=== PATIENT | male | born 1965 | race Caucasian/White ===

== ENCOUNTER 2022-09-22 21:14 | Emergency (ER) | payer SELFPAY ==
[~2022-09-22] VITALS: Ht 177.8 cm; Wt 74.8 kg
[2022-09-22 21:26] VITALS: BP 157/97
[2022-09-22] MEDS ORDERED: LIDOCAINE/EPI 2% 1:200,00 (XYLOCAINE) 10 ML VIAL ONE (21:38)
[2022-09-22] MEDS ORDERED: metroNIDAZOLE 500 MG (FLAGYL) TAB PO ONE (21:45)
[2022-09-22] MEDS ORDERED: LIDOCAINE/EPI 2% 1:100,00 (XYLOCAINE) 20 ML VIAL INJ ONE (21:45)
[2022-09-22] MEDS ORDERED: LIDOCAINE 1% INJ 20 ML VIAL INJ ONE (21:45)
[2022-09-22] MEDS ORDERED: cefTRIAXone 1,000 MG VIAL IM ONE (21:45)
[2022-09-22] MEDS ORDERED: CLIN-144 PO (22:02)
--- NOTE | 2022-09-22 22:02 | ED EENT ---
History of Present Illness General Chief Complaint: Dental Problems/Pain Stated Complaint: ABSCESSED TOOTH,SWELLING,PUS POCKET Nursing Triage Note: PT ARRIVED POV WITH COMPLAINTS OF DENTAL PAIN ON THE LEFT SIDE. PT STATED THAT THE PAIN STARTED ON SUNDAY. PT HAS BEEN TAKING AMOXICILLIN THAT FRIEND GAVE HIM. Source: patient Exam Limitations: no limitations History of Present Illness Date Seen by Provider: Sep 22, 2022 Time Seen by Provider: 21:58 Initial Comments To ER with reports of dental pain left upper for a few days. Has been taking a friend's amoxicillin, no real improvement. Does not have a dentist. Timing/Duration: abrupt Severity: moderate Location: dental Prearrival Treatment: prescription meds Associated Symptoms: facial pain/swelling Allergies and Home Medications Allergies Coded Allergies: No Known Drug Allergies (Unverified , 09/22/22) Patient Home Medication List Home Medication List Reviewed: Yes Review of Systems Review of Systems Constitutional: see HPI Eyes: No Symptoms Reported Ears: No Symptoms Reported Nose: no symptoms reported Mouth: see HPI, pain, swelling Throat: no symptoms reported Respiratory: no symptoms reported Cardiovascular: no symptoms reported Musculoskeletal: no symptoms reported Skin: no symptoms reported Past Yeimpsy-Yjzygb-Foxwzh Hx Patient Social History Tobacco Use?: Yes Tobacco type used: Cigarettes Substance use?: Yes Substance type: Marijuana Alcohol Use?: Yes Alcohol Frequency: Once in a while Immunizations Up To Date Influenza Vaccine Up-to-Date: No; Not Current First/Initial COVID19 Vaccinat: NONE Physical Exam Vital Signs Vital Signs - First Documented 09/22/22 21:26 Pulse 79 B/P (MAP) 157/97 (117) Pulse Ox 97 O2 Delivery Room Air Height, Weight, BMI Height: '" Weight: lbs. oz. kg; 23.00 BMI Method: General Appearance: WD/WN, no apparent distress Eyes: bilateral eye normal inspection, bilateral eye PERRL, bilateral eye EOMI Ears: bilateral ear auricle normal, bilateral ear canal normal, bilateral ear TM normal Mouth/Throat: No trismus; other (Swelling and fluctuance over the gingival buccal fold just superior to tooth #10. There is a marble sized area of fluctuance posterior to tooth #10 as well. Did some local anesthesia anterior to tooth #10 at the gingival buccal fold and made an incision with an 11 blade scalpel, only bloody material expressed, no purulence. Then did local anesthesia totaling 0.25 mL over the hard palate abscess. Stab incision made with an 11 blade scalpel. Moderate amount of purulent material expressed.) Neck: non-tender, full range of motion Respiratory: no respiratory distress, no accessory muscle use Gastrointestinal: normal bowel sounds, non tender Neurologic/Psychiatric: alert, normal mood/affect, oriented x 3 Skin: normal color, warm/dry Progress/Results/Core Measures Results/Orders My Orders Orders - AL HANKS APRN Ceftriaxone (Rocephin) (09/22/22 21:45) Lidocaine/Epi 2% 1:100,000 (Xylocaine/Ep (09/22/22 21:45) Lidocaine 1% Inj 20 Ml (Xylocaine 1% Inj (09/22/22 21:45) Metronidazole Tablet (Flagyl Tablet) (09/22/22 21:45) Rx-Hydrocodone/Apap 5-325 Mg (Rx-Vicodin (09/22/22 21:45) Lidocaine/Epi Mpf 2% 1:200,000 (Xylocain (09/22/22 21:38) Medications Given in ED Current Medications Medications Dose Ordered Sig/Sae Route Start Time Stop Time Status Last Admin Dose Admin Acetaminophen/ Hydrocodone Bitart 1 ea Q4H PRN PO 09/22/22 21:45 09/22/22 21:46 1 EA Ceftriaxone Sodium 1,000 mg ONCE ONCE IM 09/22/22 21:45 09/22/22 21:46 DC 09/22/22 21:48 1,000 MG Lidocaine HCl 2.1 ml ONCE ONCE INJ 09/22/22 21:45 09/22/22 21:46 DC 09/22/22 21:48 2.1 ML Lidocaine/ Epinephrine 10 ml STK-MED ONCE .ROUTE 09/22/22 21:38 09/22/22 21:40 DC 09/22/22 21:45 10 ML Metronidazole 500 mg ONCE ONCE PO 09/22/22 21:45 09/22/22 21:46 DC 09/22/22 21:47 500 MG Vital Signs/I&O 09/22/22 21:26 Pulse 79 B/P (MAP) 157/97 (117) Pulse Ox 97 O2 Delivery Room Air Blood Pressure Mean: 117 Departure Impression Primary Impression: Dental abscess Disposition: 01 HOME, SELF-CARE Condition: Stable Departure-Patient Inst. Decision time for Depature: :00 Referrals: NO,LOCAL PHYSICIAN (PCP/Family) Primary Care Physician Patient Instructions: Tooth Abscess (DC) Add. Discharge Instructions: 1. Call dentist of your choosing on Sunday. Return to ER for any concerns. Antibiotics have been sent to [facility]. All discharge instructions reviewed with patient and/or family. Voiced understanding. Scripts Clindamycin HCl (Clindamycin HCl) 300 Mg Capsule 300 MG PO TID, #30 CAP Prov: AL HANKS APRN 09/22/22 AL HANKS APRN Sep 22, 2022 22:02
== END 2022-09-22 22:07 | disposition home or self-care (01) ==
LOC: ER 21:18
DX: K04.7 Periapical abscess without sinus (principal); F17.210 Nicotine dependence, cigarettes, uncomplicated; Z28.310 Unvaccinated for COVID-19
CPT/HCPCS: 99284